=== PATIENT | female | born 1970 | race Caucasian/White ===

== ENCOUNTER → 2016-10-14 | Outpatient (CLI) | payer OTHER ==
--- NOTE | 2016-10-15 08:01 | XR ---
EXAMINATION TYPE: XR shoulder complete LT DATE OF EXAM: 10/14/2016 10:41 AM COMPARISON: NONE HISTORY: 46-year-old female with fall and acute superior left shoulder pain TECHNIQUE: 3 views FINDINGS: There is mild degenerative change at the acromioclavicular joint with prominent marginal spurring and subchondral sclerosis. The glenohumeral joint remains intact without evidence for acute fracture or dislocation. There is a 3 mm calcific focus posterior aspect of the humeral head. Additionally, there is a 1.2 cm calcified/ossific density along the anterolateral proximal third humeral shaft in line w ith the bicipital groove. Visualized left hemithorax is clear. IMPRESSION: 1. No acute osseous abnormality seen. 2. Mild AC joint OA. 3. Tiny 3 mm density posterior aspect of the humeral head could represent calcification relating to c alcific tendinitis. Clinically correlate. 4. Additional 1.2 cm density along the upper humeral shaft in line with the bicipital groove suspecte d to represent a loose body.
== END | disposition home or self-care (01) ==
LOC: RADXRYALE 10:20
PROVIDERS: ATTEND Family Medicine
DX: M19.012 Primary osteoarthritis, left shoulder (principal); W19.XXXA Unspecified fall, initial encounter

== ENCOUNTER 2017-05-19 10:08 | Inpatient (IN) | payer OTHER ==
--- NOTE | 2017-05-19 14:04 | EST ---
EXERCISE STRESS DATE OF SERVICE: 05/19/2017 AGE: 46 SEX: F HT: 66" WT: 192 PROTOCOL: PRICILA STRESS TEST STAGE: 4 DURATION OF EXERCISE: 9:30 HEART RATE REST: 69 BLOOD PRESSURE REST: 135/89 MAXIMUM HEART RATE ACHIEVED: 150 MAXIMUM BLOOD PRESSURE: 149/67 85% MPHR: 138 100% MPHR: 162 METS: 11.1 INDICATIONS: Hypertension, chest pain, shortness of breath, abnormal EKG. STRESS DATA: Pretesting physical examination showed a heart rate of 69, pressure is 135/89 mmHg. Baseline EKG showed sinus mechanism. The patient exercised on the treadmill according to Pricila protocol for a total of 9 minutes and 30 seconds and achieved 11.1 METS. Max heart rate was 150 beats per minute, which is about 92% of maximum predicted heart rate. Clinically, the patient developed chest discomfort during the exercise. The EKG showed about [address]-segment changes, result on the recovery. CONCLUSION: 1. Good exercise capacity. 2. Abnormal EKG in response to exercise with evidence of ischemic changes. 3. Chest discomfort and response to exercise as well. 4. Overall, very abnormal treadmill exercise stress test for this patient. MMODL / IJN: [id number] /
[2017-05-19] MEDS ORDERED: HEPARIN SODIUM,PORCINE 5,000 UNIT/ML 1 ML VIAL IV PRN (14:21)
[2017-05-19] MEDS ORDERED: NITROGLYCERIN SL TABS 0.4 MG TAB SUBLINGUAL PRN (14:21)
[2017-05-19] MEDS ORDERED: SODIUM CHLORIDE 0.9% 1,000 ML in EMPTY BAG 1 BAG IV ONE (14:21)
[2017-05-19] MEDS ORDERED: ALPRAZolam 0.5 MG TAB PO PRN (14:21)
[2017-05-19] MEDS ORDERED: ALPRAZolam 0.25 MG TAB PO PRN (14:21)
[2017-05-19] MEDS ORDERED: HEPARIN SODIUM,PORCINE 5,000 UNIT/ML 1 ML VIAL IV ONE (14:21)
[2017-05-19] MEDS ORDERED: ASPIRIN 81 MG PO STA (14:26)
[2017-05-19] MEDS ORDERED: HEPARIN SODIUM,PORCINE/D5W PMX 25,000 UNIT in DEXTROSE/WATER 1 500ML.BAG IV SCH (14:30)
--- NOTE | 2017-05-19 14:55 | P.CRDCN ---
History of Present Illness Consult date: 05/19/17 History of present illness: This is a 46-year-old female with past medical history significant for hypertension. She currently takes losartan/hctz daily per her PCP. She presented for an outpatient stress test today. She developed acute ST changes and had chest pain/tightness that resolved with rest. She has been placed on observation unit to prep for cardiac catheterization tomorrow morning with Dr. Redman. Review of Systems CONSTITUTIONAL: Denies fever. Denies chills. EYES: Denies blurred vision. Denies vision changes. Denies eye pain. EARS, NOSE, MOUTH & THROAT: Denies headache. Denies sore throat. Denies ear pain. CARDIOVASCULAR: Denies chest pain. Denies shortness of breath. Denies orthopnea. Denies PND. Denies palpitations. RESPIRATORY: Denies cough. GASTROINTESTINAL: Denies abdominal pain. Denies diarrhea. Denies constipation. Denies nausea. Denies vomitng. MUSCULOSKELETAL: Denies myalgias. INTEGUMENTARY: Denies pruitis. Denies rash. NEUROLOGIC: Denies numbness. Denies tingling. Denies weakness. PSYCHIATRIC: Denies anxiety. Denies depression. ENDOCRINE: Denies fatigue. Denies weight change. Denies polydipsia. Denies polyurina. GENITOURINARY: Denies burning, hematuria or urgency with micturation. HEMATOLOGIC: Denies history of anemia. Denies bleeding. Past Medical History - Past Family History Mother Additional Family Medical History / Comment(s): Mother Medications and Allergies Home Medications Medication Instructions Recorded Confirmed Type Losartan/Hydrochlorothiazide 1 each PO QAM 05/07/16 05/12/16 History [Losartan-Hctz 100-25 mg Tab] Naproxen Sodium [Aleve] 220 mg PO HS PRN 05/07/16 05/07/16 History Allergies Allergy/AdvReac Type Severity Reaction Status Date / Time latex Allergy Itching Verified 05/12/16 07:53 Physical Exam Vitals: Vital Signs Temp Pulse Resp BP Pulse Ox 05/19/17 14:27 97.8 F 82 18 141/83 90 L Intake and Output 05/18/17 05/19/17 05/19/17 22:59 06:59 14:59 Other: Weight 88.7 kg Patient Weight 10/19/17 06:59 Weight 88.7 kg GENERAL: This is a 46-year-old female in no apparent distress at the time of my examination. HEENT: Head is atraumatic, normocephalic. Pupils are equal, round. Sclerae anicteric. Conjunctivae are clear. Mucous membranes of the mouth are moist. Neck is supple. There is no jugular venous distention. No carotid bruit is heard. LUNGS: Clear to auscultation no wheezes, rales or rhonchi. No chest wall tenderness is noted on palpation or with deep breathing. HEART: Regular rate and rhythm without murmurs, rubs or gallops. S1 and S2 heard. ABDOMEN: Soft, nontender. Bowel sounds are heard. No organomegaly noted. EXTREMITIES: 2+ peripheral pulses with no evidence of peripheral edema and no calf tenderness noted. NEUROLOGIC: Patient is awake, alert and oriented x3. Results Current Medications Generic Name Dose Route Start Last Admin Trade Name Freq PRN Reason Stop Dose Admin Alprazolam 0.25 mg 05/19/17 14:21 Xanax PO Q6HR PRN Mild Anxiety Alprazolam 0.5 mg 05/19/17 14:21 Xanax PO Q6HR PRN Moderate Anxiety Aspirin 325 mg 05/20/17 06:00 Aspirin PO 05/20/17 06:01 ONCE ONE Heparin Sodium (Porcine) 0 unit 05/19/17 14:21 Heparin IV PER PROTOCOL PRN Low PTT Protocol Heparin Sodium/Dextrose 25,000 500 mls @ 20.03 mls/hr 05/19/17 14:30 unit/ IV Solution IV .Q24H AYO Protocol 11.5 UNITS/KG/HR Nitroglycerin 0.4 mg 05/19/17 14:21 Nitrostat SUBLINGUAL Q5M PRN Chest Pain Intake and Output 05/18/17 05/19/17 05/19/17 22:59 06:59 14:59 Other: Weight 88.7 kg Patient Weight 05/20/17 06:59 Weight 88.7 kg Assessment and Plan Assessment: ASSESSMENT 1. Unstable angina with EKG changes 2. ST depression with exercise 3. Essential hypertension 4. Obesity PLAN The abnormal stress test has been discussed with the patient's primary care provider. It has been recommended that the patient undergo cardiac catheterization to assess for any coronary artery disease or obstruction. I have discussed the risks, benefits and alternative therapies for the above- mentioned procedure and for both sedation/analgesia as well as necessary blood product administration, if indicated, as they pertain to this patient. The patient has indicated understanding and acceptance of the risks and procedures discussed. Questions have been answered appropriately. Orders have been placed for cardiac catheterization tomorrow morning. The patient is to be nothing by mouth after midnight tonight. Orders have been placed for EKG now for baseline as well as baseline labs. Further recommendations based upon clinical course. Nurse Practitioner note has been reviewed, I agree with a documented findings and plan of care. Patient was seen and examined.
[2017-05-19 15:51] LABS: Basophils # (A) 0.1 k/uL (0-0.2); Basophils % (A) 1 %; CH 31.8; CHCM 35.4; Eosinophils # (A) 0.2 k/uL (0-0.7); Eosinophils % (A) 3 %; HCT 42.9 % (34.0-46.0); HDW 2.87; HGB 14.4 gm/dL (11.4-16.0); Luc # (Auto) 0.15; Luc % (Auto) 2; Lymphocytes # (A) 1.9 k/uL (1.0-4.8); Lymphocytes % (A) 28 %; MCH 30.4 pg (25.0-35.0); MCHC 33.6 g/dL (31.0-37.0); MCV 90.4 fL (80.0-100.0); Mean Platelet Volume 6.7; Monocytes # (A) 0.6 k/uL (0-1.0); Monocytes % (A) 8 %; Neutrophils % (A) 58 %; RBC 4.74 m/uL (3.80-5.40); WBC 6.9 k/uL (3.8-10.6); WBC (Perox) 6.65
[2017-05-19 16:08] LABS: Partial Thromboplastin Time 21.7 sec (22.0-30.0); Prothrombin Time 10.1 sec (9.0-12.0)
[2017-05-19 16:22] LABS: Anion Gap 9 mmol/L; Blood Urea Nitrogen 15 mg/dL (7-17); Calcium 10.4 mg/dL (8.4-10.2); Carbon Dioxide 24 mmol/L (22-30); Chloride 106 mmol/L (98-107); Glucose 90 mg/dL (74-99); Non-African American GFR(MDRD) >60 (>60 ml/min/1.73 sqM); Potassium 4.2 mmol/L (3.5-5.1); Sodium 139 mmol/L (137-145)
[2017-05-19] MEDS: METOPROLOL SUCCINATE (ER) 50 MG TAB.ER.24H PO SCH (16:49)
[2017-05-19] MEDS: LOSARTAN 50 MG TAB PO SCH (16:49)
[2017-05-19] MEDS: HYDROCHLOROTHIAZIDE 25 MG TAB PO SCH (16:49)
[2017-05-20] MEDS: LOSARTAN 50 MG TAB PO SCH (05:52)
[2017-05-20] MEDS: METOPROLOL SUCCINATE (ER) 50 MG TAB.ER.24H PO SCH (05:52)
[2017-05-20] MEDS ORDERED: ASPIRIN 325 MG TAB PO ONE (06:00)
[2017-05-20 06:39] LABS: Basophils # (A) 0.1 k/uL (0-0.2); Basophils % (A) 2 %; CH 31.5; CHCM 35.7; Eosinophils # (A) 0.2 k/uL (0-0.7); Eosinophils % (A) 3 %; HDW 2.95; HGB 14.3 gm/dL (11.4-16.0); Luc # (Auto) 0.12; Luc % (Auto) 2; Lymphocytes # (A) 2.1 k/uL (1.0-4.8); Lymphocytes % (A) 38 %; MCV 88.6 fL (80.0-100.0); Mean Platelet Volume 6.6; Monocytes # (A) 0.4 k/uL (0-1.0); Monocytes % (A) 8 %; Neutrophils # (A) 2.6 k/uL (1.3-7.7); Neutrophils % (A) 47 %; RBC 4.62 m/uL (3.80-5.40); WBC 5.4 k/uL (3.8-10.6); WBC (Perox) 5.19
[2017-05-20 07:33] LABS: Cholesterol 254 mg/dL (<200); HDL Cholesterol 35 mg/dL (40-60)
[2017-05-20 07:46] VITALS: RESP 18
[2017-05-20] MEDS ORDERED: IV FLUID CONTINUATION 300 ML IV ONE (07:51)
[2017-05-20] MEDS ORDERED: MIDAZOLAM 2 MG/2 ML VIAL IVP ONE (08:05)
[2017-05-20] MEDS ORDERED: LIDOCAINE 2% INJ 20 MG/ML SQ ONE (08:08)
[2017-05-20] MEDS: VERAPAMIL SYRINGE (5 MG/10 ML) INTRAARTER ONE ×2 (08:09→08:59)
[2017-05-20] MEDS ORDERED: HEPARIN SODIUM 1,000 UN/ML (10ML VL) IV ONE ×2 (08:10→08:36)
[2017-05-20] MEDS ORDERED: MIDAZOLAM 2 MG/2 ML VIAL IV ONE (08:34)
[2017-05-20] MEDS ORDERED: fentaNYL (PF) 50 MCG/ML 2 ML AMP IV ONE (08:41)
[2017-05-20] MEDS ORDERED: ADENOSINE 90 MG in SODIUM CHLORIDE 0.9% 60 ML IVP ONE (08:54)
[2017-05-20] MEDS ORDERED: IOHEXOL 350 MG/ML 125ML BOTTLE INJ ONE (08:59)
[2017-05-20] MEDS ORDERED: RX INFO: IV CONTRAST WAS GIVEN 1 EACH MISC MISCELLANE PRN (09:03)
[2017-05-20] MEDS ORDERED: SODIUM CHLORIDE 0.9% 1,000 ML IV SCH (09:15)
--- NOTE | 2017-05-20 09:44 | CC ---
CARDIAC CATHETERIZATION REPORT DATE OF SERVICE: 05/20/2017 PERFORMING PHYSICIAN: Blake Redman MD, priming mixture carrier. PROCEDURE PERFORMED: 1. Selective right and left coronary angiogram. 2. Left heart catheterization. 3. Fractional flow reserve, FFR, of the left circumflex coronary artery. INDICATION: This is a pleasant 46-year-old female patient who is a patient of Dr. Bhupendra Dunbar who underwent an outpatient exercise treadmill stress test, which was abnormal with ischemic ST changes and chest discomfort in response to exercise. She was kept overnight for a heart catheterization today. APPROACH: Right radial artery. COMPLICATION: None. LEVEL OF SEDATION: Moderate with sedation length of 67 minutes. PROCEDURE DESCRIPTION: After obtaining an informed consent, the patient was brought to the cardiac rn labor delivery. The right radial artery was cannulated using micropuncture technique, the micropuncture wire passed easily then I placed a 6-Icelandic sheath in the right radial artery. Subsequently I did give the patient 2 mg of verapamil IA and a total of 10,000 units of heparin IV. After that, I did selective right and left coronary angiogram using JR4 and JL3.5 catheters. Left heart catheterization was performed using 5-Icelandic pigtail catheter. Subsequently, we decided to do an FFR of the left circumflex. Please see a separate paragraph for that. SELECTIVE CORONARY ANGIOGRAM: 1. The right coronary artery is a large caliber vessel and it is a dominant vessel. The RCA in the midportion has disease appeared to be in the range of 30% to 40%. Distally has disease appeared to be in the range of 20% only. It bifurcates into PDA and PLV branches. Both are angiographically normal. 2. The left main is angiographically normal. It bifurcates into the left circumflex and left anterior descending artery. 3. The left circumflex is a large caliber vessel and it is a nondominant vessel. The proximal left circumflex appeared to be angiographically normal and gives rise into a large OM branch which has an intermediate lesion appeared to be in the range of 60% to 70%. The FFR was performed and came to be at 0.85, which is nonischemic. The left circumflex continues after that as a medium caliber vessel which and seems to be angiographically normal. 4. The left anterior descending artery; the proximal LAD appeared to have mild disease only. The mid LAD appeared to have mild disease as well and gives rise into 2 diagonal branches. They appeared to have mild disease only. The LAD distally appeared to be angiographically normal. HEMODYNAMICS: The left ventricular end-diastolic pressure was 20 mmHg and no gradient was identified across the aortic valve. FFR OF THE LEFT CIRCUMFLEX: Anticoagulation was used. Anticoagulation was initiated using heparin with 10,000 units in the beginning of the procedure. After that, and after zeroing the Doppler wire and equalizing between the Doppler wire and the guiding catheter, which was JL3.5 guiding catheter, we did FFR per IV adenosine infusion and the FFR came in to be 0.85 which is nonischemic. CONCLUSION: 1. Mild disease involving the right coronary artery, which is a dominant vessel. 2. Normal left main coronary artery. 3. Intermediate disease involving the left circumflex artery with an FFR came in to be 0.85. 4. Mild disease involving the left anterior descending artery. POSTPROCEDURE MANAGEMENT: 1. Maximize medical treatment. 2. Follow up with the patient. MMODL / IJN: [id number] /
--- NOTE | 2017-05-20 09:46 | LTR ---
May 20, 2017 Re: Marilu Dao Dear Bhupendra: Per our discussion yesterday, Marilu Dao underwent a heart catheterization and that showed intermediate to severe disease involving the left circumflex coronary artery with a lesion about 60% to 70%. I did fractional flow reserve on the lesion and it turned out to be nonischemic. Maximize medical treatment is recommended at this point of time and I will continue following up with her. I want to thank you for allowing me to participate in her care and please do not hesitate to call if you have any question or concern. Sincerely, Blake Redman MD MMPAIGE / DARRIN: [id number] /
[2017-05-20] MEDS: HYDROCHLOROTHIAZIDE 25 MG TAB PO SCH (10:30)
[2017-05-20 10:41] VITALS: TEMP 98.1
[2017-05-20 11:52] VITALS: BP 110/66; PULSE 65
[2017-05-20] MEDS ORDERED: KETOROLAC 30 MG/ML 1 ML VIAL IVP STA (13:51)
--- NOTE | 2017-05-20 13:52 | MM ---
Reason for exam: screening (asymptomatic). Last mammogram was performed 1 year and 2 months ago. Physical Findings: A clinical breast exam by your physician is recommended on an annual basis and results should be correlated with mammographic findings. MG 3D Screening Mammo W/Cad Bilateral CC and MLO view(s) were taken. Prior study comparison: March 11, 2016, bilateral MG 3d screening mammo w/cad. April 18, 2014, bilateral MG screening mammo w CAD. The breast tissue is extremely dense which could obscure a lesion on mammography. No significant changes when compared with prior studies. ASSESSMENT: Negative, BI-RAD 1 RECOMMENDATION: Routine screening mammogram of both breasts in 1 year.
--- NOTE | 2017-05-20 16:14 | P.HPIM ---
History of Present Illness H&P Date: 05/20/17 Chief Complaint: chest pain patient is a 46-year-old female with a past medical history of hypertension and migraine headaches was originally presented to hospital for outpatient stress test. Patient developed chest pain and ST elevation changes while doing stress test and was sent to Hospital for cardiac catheterization. Chest pain and EKG changes were resolved with the rest. Patient currently denied any chest pain or short of breath. Denied any history of coronary artery disease. Patient started having exercise program for the past few months since then she's been having on and off chest pains. Denied a history of GERD. Denied any recent illnesses or sick contacts. Patient was also found to have elevated triglyceride levels Review of Systems Constitutional: Patient denies any fever or chills . No generalized weakness or weight loss. Abdomen: Patient denied nausea vomiting and diarrhea and abdominal pain. Cardiovascular: Patient denies any chest pain or short of breath no palpitations. Respiratory: patient denied any cough is from production. No shortness of breath Neurologic: Patient denied any numbness or tingling headache. Musculoskeletal: Patient denies any complaints of joint swelling or deformity. Skin: Negative Psychiatric: Negative Endocrine: No heat or cold intolerance. No recent weight gain. Genitourinary: No dysuria or hematuria. All other 14 point ROS negative except the above Past Medical History Past Medical History: Hypertension Additional Past Medical History / Comment(s): MIGRAINES, UTERINE FIBROIDS/CYST HAD HYTERECTOMY History of Any Multi-Drug Resistant Organisms: None Reported Past Surgical History: Bladder Surgery, Hysterectomy, Tonsillectomy Additional Past Surgical History / Comment(s): ADI CARPAL TUNNEL RELEASE, RT SHOULDER ARTHROSCOPY, RT KNEE ARTHROSCOPY Past Anesthesia/Blood Transfusion Reactions: Motion Sickness Past Psychological History: No Psychological Hx Reported Smoking Status: Former smoker Past Alcohol Use History: Occasional Additional Past Alcohol Use History / Comment(s): STARTED SMOKING 2002 AND QUIT 2012 SMOKED 1 PPD Past Drug Use History: None Reported - Past Family History Mother Family Medical History: Deep Vein Thrombosis (DVT) Additional Family Medical History / Comment(s): Mother Father Additional Family Medical History / Comment(s): PT'S DAD WHEN SHE WAAS A YOUNG CHILD. HE WS KILLED WHEN AT WORK ON AN OIL RIG Medications and Allergies Home Medications Medication Instructions Recorded Confirmed Type Losartan/Hydrochlorothiazide 1 tab PO DAILY 05/07/16 05/19/17 History [Losartan-Hctz 100-25 mg Tab] Calcium Carbonate [Calcium] 600 mg PO DAILY 05/19/17 05/19/17 History Cholecalciferol [Vitamin D3] 1,000 unit PO DAILY 05/19/17 05/19/17 History Magnesium 200 mg PO DAILY 05/19/17 05/19/17 History Metoprolol Succinate (ER) [Toprol 50 mg PO DAILY 05/19/17 05/19/17 History XL] Atorvastatin [Lipitor] 40 mg PO HS #30 tab 05/20/17 Rx Allergies Allergy/AdvReac Type Severity Reaction Status Date / Time latex Allergy Itching Verified 05/19/17 14:52 Physical Exam Vitals: Vital Signs Temp Pulse Pulse Resp BP BP Pulse Ox 05/20/17 11:00 65 110/66 97 05/20/17 10:39 98.1 F 68 18 116/46 97 05/20/17 10:30 64 111/67 97 05/20/17 10:00 63 106/60 93 L 05/20/17 09:45 65 65 106/60 116/67 95 05/20/17 09:30 67 133/65 96 05/20/17 09:15 60 18 121/70 94 L 05/20/17 07:44 98 F 69 18 125/70 95 05/20/17 04:00 16 05/20/17 03:57 97.8 F 69 16 111/64 97 05/19/17 23:57 16 05/19/17 23:56 98.0 F 63 16 109/62 96 05/19/17 20:00 16 05/19/17 19:24 97.9 F 70 16 152/80 96 05/19/17 14:27 97.8 F 82 18 141/83 90 L 05/19/17 14:22 97.8 F 69 18 111/64 97 Intake and Output 05/19/17 05/20/17 05/20/17 22:59 06:59 14:59 Intake Total 360 232 Balance 360 232 Intake: IV 232 Oral 360 Other: Voiding Method Toilet PHYSICAL EXAMINATION: Patient is lying in the bed comfortably, no acute distress, awake alert and oriented.. HEENT: Normocephalic. Neck is supple. Pupils reactive. Nostrils clear. Oral cavity is moist. Ears reveal no drainage. Neck reveals no JVD, carotid bruits, or thyromegaly. CHEST EXAMINATION: Trachea is central. Symmetrical expansion. Lung christie clear to auscultation and percussion. CARDIAC: Normal S1, S2 with no gallops. No murmurs ABDOMEN: Soft. Bowel sounds normal. No organomegaly. No abdominal bruits. Extremities: reveal no edema. No clubbing or cyanosis Neurologically awake, alert, oriented x3 with well-coordinated movements. No focal deficits noted Skin: No rash or skin lesions. Psychiatric: Operative. Nonsuicidal Musculoskeletal: No joint swelling or deformity. Normal range of motion. Results CBC & Chem 7: 05/20/17 06:15 05/19/17 15:27 Labs: Abnormal Lab Results - Last 24 Hours (Table) 05/19/17 05/19/17 05/20/17 Range/Units 15:27 15:27 06:15 APTT 21.7 L (22.0-30.0) sec Calcium 10.4 H (8.4-10.2) mg/dL Triglycerides 855 H (<150) mg/dL Cholesterol 254 H (<200) mg/dL HDL Cholesterol 35 L (40-60) mg/dL Thrombosis Risk Factor Assmnt - Choose All That Apply Any of the Below Risk Factors Present?: Yes Each Factor Represents 1 point: Age 41-60 years, Obesity (BMI >25) Other Risk Factors: Yes Each Risk Factor Represents 3 Points: Family history of DVT/PE Other congenital or acquired thrombophilia - If yes, enter type in comment: No Thrombosis Risk Factor Assessment Total Risk Factor Score: 5 Thrombosis Risk Factor Assessment Level: High Risk Assessment and Plan Assessment: #[address] depression during stress test. #2 hypertension #3 hyperlipidemia and hypertriglyceridemia #4 obesity with BMI 31.6 #5history of NSAID use plan: Patient will be continued on telemetry monitoring. Due to abnormal stress test cardiology recommended cardiac catheterization. Serial troponins negative. EKG changes resolved at rest. Currently patient denied any chest pain. Further recommendations based on the clinical course.
[2017-05-20] MEDS ORDERED: ATORVASTATIN 40 MG TAB PO SCH (21:00)
== END 2017-05-20 15:50 | disposition home or self-care (01) | DRG 287 ==
LOC: RADMAMWWP 10:08 → 3OBS 14:05 → OBSVTOIN 05-20 09:12
PROVIDERS: ADMIT Hospitalist; ATTEND Hospitalist
PROC: 4A033BC Measurement of Arterial Pressure, Coronary, Percutaneous Approach (ICD-10-PCS; 2017-05-20)
PROC: 4A023N7 Measurement of Cardiac Sampling and Pressure, Left Heart, Percutaneous Approach (ICD-10-PCS; principal; 2017-05-20 07:30)
PROC: B2111ZZ Fluoroscopy of Multiple Coronary Arteries using Low Osmolar Contrast (ICD-10-PCS; 2017-05-20 07:30)
DX: I20.0 Unstable angina (principal); I10 Essential (primary) hypertension; E78.1 Pure hyperglyceridemia; E66.9 Obesity, unspecified; Z87.891 Personal history of nicotine dependence; Z79.899 Other long term (current) drug therapy; Z87.42 Personal history of other diseases of the female genital tract; Z90.710 Acquired absence of both cervix and uterus; Z90.49 Acquired absence of other specified parts of digestive tract; Z86.718 Personal history of other venous thrombosis and embolism; Z91.040 Latex allergy status; Z79.1 Long term (current) use of non-steroidal anti-inflammatories (NSAID)
CPT/HCPCS: 77063; 80048; 80061; 81025; 85025; 85347; 85610; 85730; 93017; 93458; 93571

== ENCOUNTER 2017-12-28 06:33 | Day surgery (SDC) | payer OTHER ==
[2017-12-20 11:58] VITALS: BMI 31.8
[~2017-12-28 06:33] MED LIST: ALPRAZolam 0.25 MG TAB PO PRN; ALPRAZolam 0.5 MG TAB PO PRN; ASPIRIN 325 MG TAB PO STA; ATORVASTATIN 80 MG TAB PO STA; NITROGLYCERIN SL TABS 0.4 MG TAB SUBLINGUAL PRN; SODIUM CHLORIDE 0.9% 1,000 ML in EMPTY BAG 1 BAG IV ONE
[2017-12-28] MEDS ORDERED: LIDOCAINE 2% INJ 20 MG/ML (20 ML MDV) ONE (07:35)
[2017-12-28] MEDS ORDERED: VERAPAMIL 2.5 MG/ML 2 ML AMP ONE (07:35)
[2017-12-28] MEDS ORDERED: MIDAZOLAM 2 MG/2 ML VIAL ONE (07:35)
[2017-12-28] MEDS ORDERED: MIDAZOLAM 2 MG/2 ML VIAL IV ONE (07:46)
[2017-12-28] MEDS ORDERED: LIDOCAINE 2% INJ 20 MG/ML SQ ONE (07:50)
[2017-12-28] MEDS: VERAPAMIL 2.5 MG/ML 2 ML AMP INTRAARTER ONE ×2 (07:52→08:18)
[2017-12-28] MEDS ORDERED: BIVALIRUDIN 250 MG in SODIUM CHLORIDE 0.9% 50 ML IV ONE (07:52)
[2017-12-28] MEDS ORDERED: BIVALIRUDIN BOLUS 250 MG/50 ML IV ONE (07:52)
[2017-12-28] MEDS ORDERED: CLOPIDOGREL 75 MG TAB ONE (07:57)
[2017-12-28] MEDS ORDERED: CLOPIDOGREL 75 MG TAB PO ONE (08:04)
[2017-12-28] MEDS ORDERED: fentaNYL (PF) 50 MCG/ML 2 ML AMP ONE (08:08)
[2017-12-28] MEDS ORDERED: fentaNYL (PF) 50 MCG/ML 2 ML AMP IVP ONE (08:10)
[2017-12-28] MEDS ORDERED: NITROGLYCERIN 1000MCG/10ML SYRINGE INTRACORON ONE (08:14)
[2017-12-28] MEDS ORDERED: IOPAMIDOL-370 125ML BTL INJ ONE (08:19)
[2017-12-28] MEDS ORDERED: RX INFO: IV CONTRAST WAS GIVEN 1 EACH MISC MISCELLANE PRN (08:25)
[2017-12-28] MEDS ORDERED: MAG HYDROX/AL HYDROX/SIMETH 30 ML CUP PO PRN (08:25)
[2017-12-28] MEDS ORDERED: NITROGLYCERIN SL TABS 0.4 MG TAB SUBLINGUAL PRN (08:25)
[2017-12-28] MEDS ORDERED: ZOLPIDEM 5 MG TAB PO PRN (08:25)
[2017-12-28] MEDS ORDERED: ATROPINE SULFATE 0.1 MG/ML 10ML SYRINGE IV PRN (08:25)
[2017-12-28] MEDS ORDERED: SODIUM CHLORIDE 0.9% 1,000 ML IV SCH (08:30)
[2017-12-28] MEDS ORDERED: NON-FORMULARY DRUG (Aspirin [Adult Low Dose Aspirin Ec] 81 MG) PO SCH (09:00)
[2017-12-28] MEDS ORDERED: MAGNESIUM PO SCH (09:00)
[2017-12-28] MEDS ORDERED: [UNRECOGNIZED DRUG - OTHER] PO SCH (09:00)
[2017-12-28] MEDS ORDERED: POTASSIUM PO SCH (09:00)
[2017-12-28] MEDS ORDERED: KELP PO SCH (09:00)
[2017-12-28] MEDS ORDERED: SUPER OMEGA PO SCH (09:00)
--- NOTE | 2017-12-28 09:19 | LTR ---
December 28, 2017 Re: Marilu Dao Dear Dr. Dunbar: Marilu Dao underwent successful angioplasty and stenting of the left circumflex coronary artery with good angiographic results and without any complication. Thank you for allowing me to participate in her care and please do not hesitate to call if you have any question or concern. Sincerely, Blake Redman MD MMIDAL / ROLAN: [id number] /
--- NOTE | 2017-12-28 10:13 | PTCA ---
PERCUTANEOUSTRANS CORORONARY ANGIOGRAPHY DATE OF SERVICE: 12/28/2017 PERFORMING PHYSICIAN: Blake Redman MD, trousseau consultant. PROCEDURE PERFORMED: Successful stenting of the distal left circumflex coronary artery using 3.0 x 12 mm Xience TANISHA with good angiographic results. INDICATION: This is a pleasant 47-year-old female patient who is known to have intermediate to severe disease involving the left circumflex with a borderline FFR was getting treated medically for about 6 months continues to have chest discomfort in spite of maximized medical treatment. She was brought today to undergo an intervention on the left circumflex. APPROACH: Right radial artery. COMPLICATION: None. LEVEL OF SEDATION: Moderate with sedation length of 30 minutes. PROCEDURE DESCRIPTION: After obtaining an informed consent, the patient was brought to the cardiac logging rafter laborer. The right radial artery was cannulated using micropuncture technique and the micropuncture wire passed easily then I placed a 6-Beninese sheath in the right radial artery. Subsequently I gave the patient 2 mg of verapamil IA and I started anticoagulation using Angiomax. Subsequently I did engage the left main using a JL3.5 guide. A whisper wire was used to wire the left circumflex. I did try to advance a balloon but the balloon will not make the turn from the left main to left circumflex. So at that point, I did wire the left circumflex using a calvin wire with a run-through wire. After that, I was able to advance 3.0 x 12 mm balloon into the distal left circumflex where the balloon was inflated under 10 atmospheres for 20 seconds and after that I advanced 3.0 x 12 mm Xience TANISHA where the stent again was positioned under fluoroscopy guidance and deployed under its nominal pressure. The following angiogram showed good angiographic results and the procedure was completed without any complication. POSTPROCEDURE MANAGEMENT: 1. Dual anti-platelet therapy. 2. Risk factor modifications. 3. Follow up with the patient. MMODL / IJN: [id number] /
[2017-12-28] MEDS: LOSARTAN-HCTZ 50-12.5 MG 1 EACH TAB PO SCH ×2 (10:42→10:47)
[2017-12-28] MEDS: ASPIRIN 325 MG TAB PO SCH ×2 (10:43→10:47)
[2017-12-28] MEDS: METOPROLOL TARTRATE 25 MG TAB PO SCH ×2 (10:43→16:28)
[2017-12-28] MEDS: ISOSORBIDE MONONITRATE ER 60 MG TAB.ER.24H PO SCH ×2 (10:43→10:47)
[2017-12-28] MEDS: CYANOCOBALAMIN-FA-PYRIDOXINE 1 EACH TAB PO SCH ×2 (10:43→10:50)
[2017-12-28 11:38] LABS: Glucose,Whole Blood 133 mg/dL (75-99)
[2017-12-28] MEDS ORDERED: ATORVASTATIN 40 MG TAB PO STA (20:42)
[2017-12-28] MEDS ORDERED: NON-FORMULARY DRUG (Ubidecarenone [Co Q-10] 100 MG) PO SCH (21:00)
[2017-12-29 04:14] LABS: Basophils # (A) 0.1 k/uL (0-0.2); Basophils % (A) 2 %; Eosinophils # (A) 0.3 k/uL (0-0.7); Eosinophils % (A) 5 %; HCT 40.6 % (34.0-46.0); HGB 14.3 gm/dL (11.4-16.0); Lymphocytes # (A) 2.3 k/uL (1.0-4.8); Lymphocytes % (A) 40 %; MCH 30.3 pg (25.0-35.0); MCHC 35.2 g/dL (31.0-37.0); MCV 85.9 fL (80.0-100.0); Mean Platelet Volume 6.9; Monocytes # (A) 0.5 k/uL (0-1.0); Monocytes % (A) 9 %; Neutrophils # (A) 2.5 k/uL (1.3-7.7); Neutrophils % (A) 43 %; Platelet Count 220 k/uL (150-450); RBC 4.73 m/uL (3.80-5.40); RDW 12.8 % (11.5-15.5); WBC 5.8 k/uL (3.8-10.6)
[2017-12-29 04:32] LABS: Anion Gap 11 mmol/L; Blood Urea Nitrogen 10 mg/dL (7-17); Calcium 9.9 mg/dL (8.4-10.2); Carbon Dioxide 24 mmol/L (22-30); Chloride 107 mmol/L (98-107); Glucose 132 mg/dL (74-99); Potassium 3.9 mmol/L (3.5-5.1); Sodium 142 mmol/L (137-145)
[2017-12-29] MEDS: ASPIRIN 325 MG TAB PO SCH (07:54)
[2017-12-29] MEDS: LOSARTAN-HCTZ 50-12.5 MG 1 EACH TAB PO SCH (07:55)
[2017-12-29] MEDS: CYANOCOBALAMIN-FA-PYRIDOXINE 1 EACH TAB PO SCH (07:55)
[2017-12-29] MEDS: ISOSORBIDE MONONITRATE ER 60 MG TAB.ER.24H PO SCH (07:55)
[2017-12-29 08:00] VITALS: BP 153/86; PULSE 80; RESP 22; TEMP 98
--- NOTE | 2017-12-29 08:45 | P.DS ---
Providers Date of admission: 12/28/2017 Attending physician: Blake Redman Consults: 12/28/17 08:25 Consult Physician Routine Consulting Provider: [facility] Consult Reason/Comments: Post Interventional patient Do you want consulting provider notified?: Already Contacted [facility] Course: This is a pleasant 47-year-old female patient with known history of intermediate to severe coronary artery disease involving the left circumflex with a borderline fractional flow reserve about a year ago was experiencing intermittent episodes of chest discomfort concerning for angina. Maximize medical treatment was tried and the patient continues to have chest discomfort in spite of that. She was admitted yesterday and underwent successful stenting of the left circumflex with a good angiographic results and without any complication using drug-eluting stent. On follow-up with the patient today, she denies having any chest pain or discomfort. The patient is going to be discharged home on dual antiplatelet therapy along with a statin. She is intolerant to beta vero. The procedure was performed from the right radial artery. I am going to follow-up with the patient in a week in the office. Plan - Discharge Summary Discharge Rx Participant: Yes New Discharge Prescriptions: New Clopidogrel [Plavix] 75 mg PO DAILY #90 tab Continue Losartan/Hydrochlorothiazide [Losartan-Hctz 100-25 mg Tab] 1 tab PO DAILY Atorvastatin [Lipitor] 40 mg PO HS #30 tab Vitamin B Complex 1 each PO DAILY Ubidecarenone [Co Q-10] 100 mg PO HS Aspirin [Adult Low Dose Aspirin EC] 81 mg PO DAILY Potassium + Magnesium(Dose Unknown) 1 tab PO DAILY Apple Cider Complete(Dose Unknown) 2 tab PO DAILY Isosorbide Mononitrate ER [Imdur] 60 mg PO DAILY Kelp 1 each PO DAILY Super Redford 3-7-9 2 tab PO DAILY Discharge Medication List Losartan/Hydrochlorothiazide [Losartan-Hctz 100-25 mg Tab] 1 tab PO DAILY [History] Atorvastatin [Lipitor] 40 mg PO HS #30 tab 05/20/17 [Rx] Apple Cider Complete(Dose Unknown) 2 tab PO DAILY 12/20/17 [History] Aspirin [Adult Low Dose Aspirin EC] 81 mg PO DAILY 12/20/17 [History] Isosorbide Mononitrate ER [Imdur] 60 mg PO DAILY 12/20/17 [History] Kelp 1 each PO DAILY 12/20/17 [History] Potassium + Magnesium(Dose Unknown) 1 tab PO DAILY 12/20/17 [History] Super Redford 3-7-9 2 tab PO DAILY 12/20/17 [History] Ubidecarenone [Co Q-10] 100 mg PO HS 12/20/17 [History] Vitamin B Complex 1 each PO DAILY 12/20/17 [History] Clopidogrel [Plavix] 75 mg PO DAILY #90 tab 12/29/17 [Rx] Follow up Appointment(s)/Referral(s): Blake Redman MD [STAFF PHYSICIAN] - 1 Week
[2017-12-29] MEDS ORDERED: CLOPIDOGREL 75 MG TAB PO SCH (09:00)
[2017-12-29] MEDS ORDERED: ATORVASTATIN 40 MG TAB PO SCH (21:00)
== END 2017-12-29 09:13 | disposition home or self-care (01) ==
LOC: CATHCVL 06:33 → 6ICU 09:44 → CATHCVL 12-29 09:13
PROVIDERS: ATTEND Internal Medicine Interventional Cardiology
DX: I25.118 Atherosclerotic heart disease of native coronary artery with other forms of angina pectoris (principal); E78.5 Hyperlipidemia, unspecified; I10 Essential (primary) hypertension; Z87.891 Personal history of nicotine dependence; Z79.82 Long term (current) use of aspirin; Z79.899 Other long term (current) drug therapy
CPT/HCPCS: 80048; 85025; C9600; C1769 ×2; C1887 ×2; C1874; C1894; C1725; J2001; J2250; J3010; J0583; Q9967

== ENCOUNTER 2018-02-01 22:07 | Emergency (ER) | payer OTHER ==
[2018-02-01 22:20] VITALS: RESP 18
[2018-02-01] MEDS ORDERED: ASPIRIN 81 MG PO STA (22:47)
--- NOTE | 2018-02-01 22:49 | ED ---
Chest Pain HPI - General Chief Complaint: Chest Pain Stated Complaint: chest pain/high blood pressure Time Seen by Provider: 02/01/18 22:22 Source: patient Mode of arrival: wheelchair Limitations: no limitations - History of Present Illness Initial Comments: This patient's a 47-year-old woman who presents with substernal chest discomfort , that she is describing as a pressure feeling. It is been going on between 1 and 2 weeks though more pronounced the past 2 days. It seems to be constant. She has not noted an exertional component. She states that she does feel will shortness of breath. She has noted also that when she has taken her blood pressure over the past few days it is been running in the neighborhood of 160/ 100. Patient denies diaphoresis, nausea vomiting, lightheadedness or syncope, palpitations. MD Complaint: chest pain -: week(s) Onset: during rest Pain Location: substernal Severity: moderate Quality: tightness Consistency: constant Improves With: nothing Worsens With: nothing Anginal Symptoms: dyspnea Treatments Prior to Arrival: none - Related Data Home Medications Medication Instructions Recorded Confirmed Losartan/Hydrochlorothiazide 1 tab PO DAILY 05/07/16 02/01/18 [Losartan-Hctz 100-25 mg Tab] Apple Cider Complete(Dose Unknown) 2 tab PO DAILY 12/20/17 02/01/18 Aspirin [Adult Low Dose Aspirin EC] 81 mg PO DAILY 12/20/17 02/01/18 Isosorbide Mononitrate ER [Imdur] 60 mg PO DAILY 12/20/17 02/01/18 Kelp 1 tab PO DAILY 12/20/17 02/01/18 Potassium + Magnesium(Dose Unknown) 1 tab PO DAILY 12/20/17 02/01/18 Super [place] 3-7-9 2 tab PO DAILY 12/20/17 02/01/18 Ubidecarenone [Co Q-10] 100 mg PO DAILY 12/20/17 02/01/18 Vitamin B Complex 1 cap PO DAILY 12/20/17 02/01/18 Atorvastatin [Lipitor] 40 mg PO DAILY 02/01/18 02/01/18 Fenofibrate Nanocrystallized 48 mg PO DAILY 02/01/18 02/01/18 [Fenofibrate] Previous Rx's Medication Instructions Recorded Clopidogrel [Plavix] 75 mg PO DAILY #90 tab 12/29/17 Allergies Allergy/AdvReac Type Severity Reaction Status Date / Time latex Allergy Itching Verified 02/01/18 22:49 Review of Systems ROS Statement: Those systems with pertinent positive or pertinent negative responses have been documented in the HPI. ROS Other: All systems not noted in ROS Statement are negative. Constitutional: Reports: chills. Denies: fever Respiratory: Denies: cough, dyspnea Cardiovascular: Reports: as per HPI, chest pain. Denies: palpitations, dyspnea on exertion, orthopnea, edema, syncope Gastrointestinal: Denies: abdominal pain, nausea, vomiting Genitourinary: Denies: dysuria, hematuria Musculoskeletal: Denies: back pain Skin: Denies: rash Neurological: Denies: headache, weakness, numbness Psychiatric: Reports: anxiety EKG Findings - EKG Results: EKG: interpreted by MELISA, sinus rhythm (Rate approximately 89 bpm), normal axis , normal QRS, normal ST/T - Blocks, [place], Hypertrophy, ST Abn: Chamber hypertrophy or enlargement: only voltage criteria for left ventricular hypertrophy Past Medical History Past Medical History: Coronary Artery Disease (CAD), Hypertension Additional Past Medical History / Comment(s): MIGRAINES, UTERINE FIBROIDS/CYST HAD HYTERECTOMY History of Any Multi-Drug Resistant Organisms: None Reported Past Surgical History: Bladder Surgery, Heart Catheterization With Stent, Hysterectomy, Tonsillectomy Additional Past Surgical History / Comment(s): ADI CARPAL TUNNEL RELEASE, RT SHOULDER ARTHROSCOPY, RT KNEE ARTHROSCOPY Past Anesthesia/Blood Transfusion Reactions: Motion Sickness Past Psychological History: No Psychological Hx Reported Smoking Status: Former smoker Past Alcohol Use History: Occasional Past Drug Use History: None Reported - Past Family History Mother Family Medical History: Deep Vein Thrombosis (DVT) Additional Family Medical History / Comment(s): . Father Additional Family Medical History / Comment(s): PT'S DAD WHEN SHE WAAS A YOUNG CHILD. HE WS KILLED WHEN AT WORK ON AN OIL RIG General Exam Limitations: no limitations General appearance: alert, in no apparent distress Head exam: Present: atraumatic, normocephalic Eye exam: Present: normal appearance. Absent: scleral icterus, conjunctival injection Neck exam: Present: normal inspection Respiratory exam: Present: normal lung sounds bilaterally. Absent: respiratory distress, wheezes, rales, rhonchi, stridor Cardiovascular Exam: Present: regular rate, normal rhythm, normal heart sounds. Absent: systolic murmur, diastolic murmur, rubs, gallop GI/Abdominal exam: Present: soft. Absent: distended, tenderness, guarding, rebound, rigid, mass Extremities exam: Present: normal inspection, normal capillary refill. Absent: pedal edema, calf tenderness Back exam: Present: normal inspection. Absent: CVA tenderness (R), CVA tenderness (L) Neurological exam: Present: alert Skin exam: Present: warm, dry, intact, normal color. Absent: rash Course Vital Signs 02/01/18 02/01/18 02/02/18 22:16 23:15 00:17 Temperature 98.2 F 98.0 F Pulse Rate 88 82 83 Respiratory 18 18 18 Rate Blood Pressure 181/108 188/101 143/75 O2 Sat by Pulse 98 99 99 Oximetry 02/02/18 02/02/18 01:54 03:02 Temperature 97.4 F L Pulse Rate 78 87 Respiratory 18 18 Rate Blood Pressure 132/71 138/87 O2 Sat by Pulse 98 99 Oximetry Chest Pain [facility] Patient's 47-year-old woman presenting with some atypical chest pain going on between one week and 2. Her initial workup is negative and I did discuss admission for telemetry monitoring, repeat cardiac enzymes and cardiology consultation. At this point the patient does decline though she agrees to have second set of enzymes drawn and states that she does have appointment coming with cardiology in approximately 2 weeks. We discussed and she will call to inform them that she was here. We discussed return parameters and appropriate follow-up Disposition Clinical Impression: Chest pain, Hypertension Disposition: HOME SELF-CARE Condition: Good Instructions: Chest Pain (ED), Hypertension (ED) Is patient prescribed a controlled substance at d/c from ED?: No Referrals: Bhupendra Dunbar DO [Primary Care Provider] - 1-2 days Blake Redman MD [Family Provider] - 1-2 days
[2018-02-01] MEDS ORDERED: NITROGLYCERIN SL TABS 0.4 MG TAB SUBLINGUAL STA (23:08)
[2018-02-01 23:12] LABS: Basophils # (A) 0.1 k/uL (0-0.2); Basophils % (A) 1 %; Eosinophils # (A) 0.2 k/uL (0-0.7); Eosinophils % (A) 3 %; HGB 13.5 gm/dL (11.4-16.0); Lymphocytes # (A) 1.7 k/uL (1.0-4.8); Lymphocytes % (A) 28 %; MCH 30.5 pg (25.0-35.0); MCHC 35.5 g/dL (31.0-37.0); Mean Platelet Volume 6.5; Monocytes # (A) 0.6 k/uL (0-1.0); Monocytes % (A) 10 %; Neutrophils # (A) 3.5 k/uL (1.3-7.7); Neutrophils % (A) 56 %; Platelet Count 246 k/uL (150-450); RBC 4.41 m/uL (3.80-5.40); RDW 13.6 % (11.5-15.5); WBC 6.3 k/uL (3.8-10.6)
[2018-02-01 23:22] LABS: ALT 56 U/L (9-52); AST 31 U/L (14-36); Albumin 4.2 g/dL (3.5-5.0); Alkaline Phosphatase 41 U/L (38-126); Anion Gap 10 mmol/L; Blood Urea Nitrogen 15 mg/dL (7-17); Calcium 10.2 mg/dL (8.4-10.2); Carbon Dioxide 23 mmol/L (22-30); Chloride 106 mmol/L (98-107); Glucose 142 mg/dL (74-99); Magnesium 2.2 mg/dL (1.6-2.3); Sodium 139 mmol/L (137-145); Total Bilirubin 0.7 mg/dL (0.2-1.3); Total Protein 6.6 g/dL (6.3-8.2)
--- NOTE | 2018-02-01 23:30 | XR ---
EXAMINATION TYPE: XR chest 1V portable DATE OF EXAM: 02/01/2018 COMPARISON: 06/26/2015 HISTORY: Chest pain TECHNIQUE: Single frontal view of the chest is obtained. FINDINGS: Heart and mediastinum are normal. Lungs are clear. Diaphragm is normal. There are chest le ads. Bony thorax is intact. IMPRESSION: Normal chest. No change.
[2018-02-01 23:32] LABS: D-Dimer 0.18 mg/L FEU (<0.60); Prothrombin Time 9.9 sec (9.0-12.0)
[2018-02-01 23:33] LABS: Partial Thromboplastin Time 21.3 sec (22.0-30.0)
[2018-02-01 23:44] LABS: Creatine Kinase 29 U/L (30-135)
[2018-02-01 23:57] LABS: Creatine Kinase MB 0.3 ng/mL (0.0-2.4); Troponin I <0.012 ng/mL (0.000-0.034)
[2018-02-02 03:03] VITALS: BP 138/87; PULSE 87; TEMP 97.4
== END 2018-02-02 03:03 | disposition home or self-care (01) ==
LOC: EC 22:07
DX: I10 Essential (primary) hypertension (principal); R07.89 Other chest pain; I25.10 Atherosclerotic heart disease of native coronary artery without angina pectoris; Z87.891 Personal history of nicotine dependence; Z95.5 Presence of coronary angioplasty implant and graft; Z98.890 Other specified postprocedural states; Z79.899 Other long term (current) drug therapy; Z91.040 Latex allergy status
CPT/HCPCS: 36415; 71045; 80053; 82550; 82553; 83735; 84484; 85025; 85379; 85610; 85730; 93005; 99285

== ENCOUNTER → 2018-02-22 | Outpatient (CLI) | payer OTHER ==
--- NOTE | 2018-02-22 14:50 | BD ---
EXAMINATION TYPE: Axial Bone Density DATE OF EXAM: 02/22/2018 COMPARISON: NONE CLINICAL HISTORY: Screening for osteoporosis. Postmenopausal female. Height: 65.5 IN Weight: 204 LBS FRAX RISK QUESTIONS: Family History (Parent hip fracture): YES MOTHER RISK FACTORS HISTORY OF: Family History of Osteoporosis: YES MOTHER Active: YES Postmenopausal woman: AGE 45 MEDICATIONS: Additional Medications: ASPIRIN, ATORVASTATIN, PLAVIX, NORVASC, FENOFIBRATE, ISOSORB MONO ER, COQ10,P OTASSIUM, MAGNESIUM, B COMPLEX, SOLARAY KELP, SUPER OMEGA EXAM MEASUREMENTS: Bone mineral densitometry was performed using the [employer] System. Bone mineral density as measured about the Lumbar spine is: ----- L1-L4(G/cm2): 1.656 T Score Values are as follows: ----- L2: 3.3 ----- L3: 4.9 ----- L4: 4.2 ----- L1-L4: 4.0 Bone mineral density BASELINE Bone mineral density about the R hip (g/cm2): 1.304 Bone mineral density about the L hip (g/cm2): 1.150 T Score values are as follows: -----R Neck: 1.9 -----L Neck: 1.8 -----R Total: 2.7 -----L Total: 1.8 Bone mineral density BASELINE IMPRESSION: Normal (Values between +1 and -1 indicate normal bone mass). Consider repeating this study in 5 year s or sooner if there is some new clinical indication. NOTE: T-SCORE=SD OF THE YOUNG ADULT MEAN.
== END | disposition home or self-care (01) ==
LOC: RADBDWWP 13:08
PROVIDERS: ATTEND Family Medicine
DX: Z13.820 Encounter for screening for osteoporosis (principal); E83.52 Hypercalcemia
CPT/HCPCS: 77080

== ENCOUNTER → 2018-02-22 | Outpatient (CLI) | payer OTHER ==
[2018-02-22 13:23] LABS: ALT 68 U/L (9-52); AST 41 U/L (14-36); Albumin 4.7 g/dL (3.5-5.0); Alkaline Phosphatase 62 U/L (38-126); Anion Gap 9 mmol/L; Blood Urea Nitrogen 13 mg/dL (7-17); Calcium 10.7 mg/dL (8.4-10.2); Carbon Dioxide 25 mmol/L (22-30); Chloride 106 mmol/L (98-107); Glucose 133 mg/dL (74-99); Potassium 4.1 mmol/L (3.5-5.1); Sodium 140 mmol/L (137-145); Total Bilirubin 0.9 mg/dL (0.2-1.3); Total Protein 7.3 g/dL (6.3-8.2)
[2018-02-22 13:38] LABS: Collection Time,Urine 24 hrs; Total Volume 24 Hour,Urine 1600 mls (800-1800)
[2018-02-22 14:27] LABS: Calcium 24 Hour,Urine >569.6 mg/24 hr
--- NOTE | 2018-02-22 15:28 | US ---
EXAMINATION TYPE: US thyroid st tissue head/neck DATE OF EXAM: 02/22/2018 COMPARISON: NONE CLINICAL HISTORY: E21.0 HYPERPARATHYROIDISM. Elevated calcium GLAND SIZE: Right Lobe: 5.5 x 1.8 x 1.4cm Overall Parenchyma: homogenous Left Lobe: 5.2 x 1.6 x 1.7cm Overall Parenchyma: homogeneous Isthmus Thickness: 0.8cm NODULES RIGHT: # of nodules measured on right: 0 LEFT: # of nodules measured on left: 0 ISTHMUS: # of nodules measured in the isthmus: 0 Bilateral neck scanned, no evidence of lymphadenopathy. No parathyroid tissue seen at this time. IMPRESSION: Thyroid gland is homogeneous without discrete nodularity although mildly enlarged. Parathyroid adeno ma is identified on today's examination. Nuclear medicine parathyroid uptake scan could be performed for further evaluation.
[2018-02-22 19:23] LABS: Parathyroid Hormone Intact 101.2 pg/mL (14.0-72.0); Vitamin D 25 Hydroxy 15.1 ng/mL (30.0-100.0)
== END | disposition home or self-care (01) ==
LOC: RADUSWWP 12:50
PROVIDERS: ATTEND Internal Medicine Endocrinology, Diabetes & Metabolism
DX: D35.1 Benign neoplasm of parathyroid gland (principal); E21.0 Primary hyperparathyroidism
CPT/HCPCS: 36415; 76536; 80053; 81050; 82306; 82340; 82941; 83970; 84146

== ENCOUNTER → 2018-05-23 | Outpatient (CLI) | payer OTHER ==
--- NOTE | 2018-05-25 09:55 | MM ---
Reason for exam: screening (asymptomatic). Last mammogram was performed 1 year ago. Physical Findings: A clinical breast exam by your physician is recommended on an annual basis and results should be correlated with mammographic findings. MG 3D Screening Mammo W/Cad Bilateral CC and MLO view(s) were taken. Prior study comparison: May 19, 2017, bilateral MG 3d screening mammo w/cad. March 11, 2016, bilateral MG 3d screening mammo w/cad. The breast tissue is heterogeneously dense. This may lower the sensitivity of mammography. No suspicious abnormality. No significant changes when compared with prior studies. ASSESSMENT: Negative, BI-RAD 1 RECOMMENDATION: Routine screening mammogram of both breasts in 1 year.
== END | disposition home or self-care (01) ==
LOC: RADMAMWWP 02-22 13:07
PROVIDERS: ATTEND Family Medicine
DX: Z12.31 Encounter for screening mammogram for malignant neoplasm of breast (principal); E83.52 Hypercalcemia
CPT/HCPCS: 77063; 77067

== ENCOUNTER → 2019-06-13 | Outpatient (CLI) | payer OTHER ==
--- NOTE | 2019-06-13 09:42 | MM ---
Reason for exam: screening (asymptomatic). Last mammogram was performed 1 year and 1 month ago. Physical Findings: A clinical breast exam by your physician is recommended on an annual basis and results should be correlated with mammographic findings. MG 3D Screening Mammo W/Cad Bilateral CC and MLO view(s) were taken. Prior study comparison: May 23, 2018, bilateral MG 3d screening mammo w/cad. May 19, 2017, bilateral MG 3d screening mammo w/cad. The breast tissue is heterogeneously dense. This may lower the sensitivity of mammography. Benign appearing bilateral calcifications. There is chronic nodularity in the left breast. No significant changes when compared with prior studies. ASSESSMENT: Benign, BI-RAD 2 RECOMMENDATION: Routine screening mammogram of both breasts in 1 year.
== END | disposition home or self-care (01) ==
LOC: RADMAMWWP 07:15
PROVIDERS: ATTEND Family Medicine
DX: Z12.31 Encounter for screening mammogram for malignant neoplasm of breast (principal)
CPT/HCPCS: 77063; 77067

== ENCOUNTER → 2019-08-09 | Outpatient (CLI) | payer OTHER ==
[2019-08-09 17:49] LABS: Basophils # (A) 0.1 k/uL (0-0.2); Basophils % (A) 2 %; Eosinophils # (A) 0.3 k/uL (0-0.7); Eosinophils % (A) 4 %; HCT 41.9 % (34.0-46.0); HGB 14.1 gm/dL (11.4-16.0); Lymphocytes # (A) 2.5 k/uL (1.0-4.8); Lymphocytes % (A) 37 %; MCH 28.9 pg (25.0-35.0); MCHC 33.5 g/dL (31.0-37.0); MCV 86.2 fL (80.0-100.0); Monocytes # (A) 0.5 k/uL (0-1.0); Monocytes % (A) 7 %; Neutrophils # (A) 3.2 k/uL (1.3-7.7); Neutrophils % (A) 47 %; Platelet Count 295 k/uL (150-450); RBC 4.86 m/uL (3.80-5.40); RDW 12.5 % (11.5-15.5); WBC 6.7 k/uL (3.8-10.6)
[2019-08-09 17:58] LABS: Potassium 4.1 mmol/L (3.5-5.1)
== END | disposition home or self-care (01) ==
LOC: LABPAT 17:24
PROVIDERS: ATTEND Orthopaedic Surgery
DX: Z01.818 Encounter for other preprocedural examination (principal); Z01.812 Encounter for preprocedural laboratory examination; M23.92 Unspecified internal derangement of left knee
CPT/HCPCS: 36415; 80051; 85025; 93005

== ENCOUNTER 2019-09-07 11:01 | Day surgery (SDC) | payer OTHER ==
[2019-09-05 12:25] VITALS: BMI 33.0
--- NOTE | 2019-09-06 14:17 | HP ---
HISTORY AND PHYSICAL REASON FOR ADMISSION: Surgery is 09/07/2019. HISTORY OF PRESENT ILLNESS: Marilu Dao is a 49-year-old patient seen with left knee pain. We discussed options. She elected to proceed with arthroscopy. Consent was obtained regarding the procedure. PAST MEDICAL HISTORY: Hypertension, brv-plljxnn-pwemkiuqm diabetes. PAST SURGICAL HISTORY: Carpal tunnel release, cholecystectomy, hysterectomy, left knee arthroscopy, right shoulder arthroscopy. DAILY MEDICATIONS: Aspirin, atorvastatin, carvedilol, fenofibrate, metformin, Norvasc. ALLERGIES: None. SOCIAL HISTORY: She denies tobacco use. PHYSICAL EXAMINATION: Evaluation of the left knee: Range of motion is zero to 125. Mild effusion. Tenderness along the lateral joint line. Positive lateral Sultana's. Patellar crepitus. Ligament is stable. Hip rotation without pain. Distal neurovascular exam intact. RADIOGRAPHS: Radiographs of the left knee: Moderate medial, lateral, and patellofemoral compartment osteoarthritis. MRI left knee: Medial meniscal tear. IMPRESSION: 1. Internal derangement of the left knee with medial meniscal tear. 2. Left knee osteoarthritis. 3. Hypertension. 4. Bco-towmepi-urcrbuiil diabetes. PLAN: Left knee arthroscopy with partial meniscectomy, partial synovectomy, and debridement. Surgery is 09/07/2019. MMODL / IJN: [id number] /
[~2019-09-07 11:01] MED LIST changes: -ALPRAZolam 0.25 MG TAB PO PRN; -ALPRAZolam 0.5 MG TAB PO PRN; -ASPIRIN 325 MG TAB PO STA; -ATORVASTATIN 80 MG TAB PO STA; +DEXAMETHASONE SOD PHOSPHATE 10 MG/ML 1 ML VIAL IV ONE; +HYDROmorphone 0.5 MG/0.5 ML SYRINGE IVP PRN; +LACTATED RINGERS 1,000 ML IV SCH; +LIDOCAINE 1% 20 ML VIAL (10MG/ML) FOR IV START INTRADERMA PRN; -NITROGLYCERIN SL TABS 0.4 MG TAB SUBLINGUAL PRN; +ONDANSETRON 4 MG/2 ML VIAL IVP ONE; +SCOPOLAMINE 1.5MG/72HR PATCH TRANSDERM ONE; -SODIUM CHLORIDE 0.9% 1,000 ML in EMPTY BAG 1 BAG IV ONE
[2019-09-07 11:20] VITALS: RESP 16
[2019-09-07 11:31] LABS: Glucose,Whole Blood 154 mg/dL (75-99)
[2019-09-07] MEDS ORDERED: BUPIVACAINE (PF) 0.25% 30 ML VIAL SQ ONE (12:54)
[2019-09-07] MEDS ORDERED: fentaNYL (PF) 50 MCG/ML 2 ML AMP ONE (12:54)
[2019-09-07] MEDS ORDERED: LIDOCAINE 1% INJ 10MG/ML (20 ML MDV) ONE (12:54)
[2019-09-07] MEDS ORDERED: PROPOFOL 10 MG/ML 20 ML VIAL IV ONE (12:54)
[2019-09-07] MEDS ORDERED: MIDAZOLAM 2 MG/2 ML VIAL ONE (12:54)
[2019-09-07] MEDS ORDERED: LACTATED RINGERS 1,000 ML IV ONE (13:33)
[2019-09-07 13:48] VITALS: TEMP 97.3
--- NOTE | 2019-09-07 13:51 | P.OP ---
Date of Procedure: 09/07/19 Preoperative Diagnosis: Internal derangement left knee Postoperative Diagnosis: 1. Tear medial meniscus left knee 2. 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 Grade 4 chondromalacia patellofemoral joint left knee 4. Reactive synovitis medial, lateral and suprapatellar compartments left knee Procedure(s) Performed: 1. Arthroscopic partial medial meniscectomy left knee 2. Arthroscopic chondroplasty medial tibial plateau left knee 3. Arthroscopic microfracture medial tibial plateau left knee 4. Arthroscopic partial synovectomy medial, lateral and suprapatellar compartments left knee Anesthesia: HENNYA, local Surgeon: Vernon Jo Estimated Blood Loss (ml): 7 Pathology: none sent Condition: stable Disposition: PACU Indications for Procedure: 49-year-old patient seen with progressive left knee. After having treatment options discussed, she elected to proceed with arthroscopy. Operative Findings: See description of procedure Description of Procedure: Patient was taken to the operative suite. Patient underwent a general anesthetic by the department of anesthesia. Patient was given preoperative antibiotics. The left lower extremity was placed in a well-padded arthroscopic leg carson. The left leg was prepped and draped in the normal sterile orthopedic fashion. A lateral parapatellar and suprapatellar incision was made. Trochars were inserted. Arthroscopy was initiated. Suprapatellar pouch revealed diffuse thick reactive synovitis. The patellofemoral joint appeared to articulate congruently. There was grade 4 chondromalacia of the patella and the femoral sulcus. There were areas of bony exposure on both size. There were no osteochondral tears present.. The scope was guided into the medial gutter. No loose bodies or plica were identified. The scope was then guided into the medial compartment. A medial parapatellar incision was made. Trocar inserted followed by probe. There was a radial tear involving the posterior horn medial meniscus. There was an area of grade 4 chondromalacia medial aspect medial tibial plateau with some exposed bone. There was thick reactive synovitis anteriorly. I performed a partial medial meniscectomy getting down to stable me niscal tissue. I performed a chondroplasty of the tibial plateau. I performed a microfracture of that exposed area bone medial tibial plateau penetrating the bone with microfracture awl with resultant bleeding at the microfracture site. I now performed a partial synovectomy decompressing the reactive synovitis as well as debriding out some piecemeal fragments of meniscus I encountered. The residual meniscus was stable. The residual osteochondral surface was stable. There was good decompression of synovitis. Scope and probe were then guided into the intercondylar notch. Cruciates were identified, probed and found to be stable. The scope and probe were then guided into lateral compartment. With some mild fraying of the mid body area lateral meniscus. There was reactive synovitis anteriorly. Chondromalacia changes lateral compartment with no osteochondral tears present. I debrided that fraying of the lateral meniscus with a motorized shaver. I performed a partial synovectomy decompressing reactive synovitis. The shaver was removed. Good decompression of synovitis was noted. The scope was in guided back into the suprapatellar compartment. I introduced a motorized shaver into the suprapatellar compartment. I debrided some piecemeal fragments of meniscus I encountered. I performed a partial synovectomy decompressing the reactive synovitis. There was good decompression of synovitis. The shaver was removed. Instruments were now removed from the joint. The joint was infiltrated with .25% Marcaine. Steri-Strips were applied to the portal sites. Sterile dressings were applied. The patient was placed into a MATTHEW hose. No tourniquet was utilized. The patient was awakened, transferred to a bed and taken to recovery stable satisfactory condition.
[2019-09-07 14:37] LABS: Glucose,Whole Blood 165 mg/dL (75-99)
[2019-09-07 15:05] VITALS: PULSE 89
[2019-09-07 15:26] VITALS: BP 118/73
== END 2019-09-07 15:55 | disposition home or self-care (01) ==
LOC: OR 11:01
PROVIDERS: ATTEND Orthopaedic Surgery
DX: M23.322 Other meniscus derangements, posterior horn of medial meniscus, left knee (principal); M94.262 Chondromalacia, left knee; M65.862 Other synovitis and tenosynovitis, left lower leg; M22.42 Chondromalacia patellae, left knee; M17.12 Unilateral primary osteoarthritis, left knee; I10 Essential (primary) hypertension; E11.9 Type 2 diabetes mellitus without complications; I25.10 Atherosclerotic heart disease of native coronary artery without angina pectoris; E78.5 Hyperlipidemia, unspecified; G43.909 Migraine, unspecified, not intractable, without status migrainosus; Z98.890 Other specified postprocedural states; Z90.49 Acquired absence of other specified parts of digestive tract; Z90.710 Acquired absence of both cervix and uterus; Z79.82 Long term (current) use of aspirin; Z79.899 Other long term (current) drug therapy; Z79.84 Long term (current) use of oral hypoglycemic drugs; Z87.891 Personal history of nicotine dependence; Z95.5 Presence of coronary angioplasty implant and graft
CPT/HCPCS: 29881; 29879; J2250; J1100; J0690; J2405; J2001; J3010; J2704; J1170

== ENCOUNTER → 2019-11-29 | Outpatient (CLI) | payer OTHER ==
[2019-11-29 15:50] LABS: African American GFR (CKD) 116.3 (60.0-200.0); Albumin 4.5 g/dL (3.80-4.90); Albumin/Globulin Ratio 2.05 (1.60-3.17); Calcium 9.4 mg/dL (8.7-10.3); Globulin 2.2 g/dL (1.6-3.3); Non-African American GFR(CKD) 100.3 (60.0-200.0); Total Protein 6.7 g/dL (6.2-8.2)
== END | disposition home or self-care (01) ==
LOC: LABWHC1 09:44
PROVIDERS: ATTEND Internal Medicine Endocrinology, Diabetes & Metabolism
DX: Z86.39 Personal history of other endocrine, nutritional and metabolic disease (principal); E55.9 Vitamin D deficiency, unspecified
CPT/HCPCS: 36415; 80053; 82306; 83970

== ENCOUNTER → 2019-12-08 | Outpatient (CLI) | payer OTHER ==
[2019-12-08 15:46] LABS: Urine Creatinine 105.2 mg/dL
[2019-12-08 16:16] LABS: African American GFR (CKD) 98.9 (60.0-200.0); Albumin 4.8 g/dL (3.80-4.90); Albumin/Globulin Ratio 2.09 (1.60-3.17); Anion Gap 9.5 mmol/L (4.00-12.00); BUN/Creat Ratio 17.5 Ratio (12.00-20.00); Calcium 9.6 mg/dL (8.7-10.3); Carbon Dioxide 24.5 mmol/L (21.6-31.8); Chol/HDL Ratio 4.78; Globulin 2.3 g/dL (1.6-3.3); LDL Cholesterol,Calculated 88.4 mg/dL (0.0-131.0); Non-African American GFR(CKD) 85.4 (60.0-200.0); Potassium 4.2 mmol/L (3.5-5.5); Total Bilirubin 1.2 mg/dL (0.2-1.2); Total Protein 7.1 g/dL (6.2-8.2); VLDL Calculation 62.6 mg/dL (5.00-40.00)
[2019-12-08 16:44] LABS: Hemoglobin A1C 7.6 % (4.0-6.0)
== END | disposition home or self-care (01) ==
LOC: LABWHC1 09:05
PROVIDERS: ATTEND Internal Medicine Endocrinology, Diabetes & Metabolism
DX: E11.65 Type 2 diabetes mellitus with hyperglycemia (principal)
CPT/HCPCS: 36415; 80053; 80061; 82043; 82570; 83036; 84443

== ENCOUNTER → 2020-03-20 | Outpatient (CLI) | payer OTHER | END | disposition home or self-care (01) | LOC: LABPAT 08:36 | PROVIDERS: ATTEND Orthopaedic Surgery | DX: Z01.812 Encounter for preprocedural laboratory examination (principal) | CPT/HCPCS: 87070 ==

== ENCOUNTER 2020-04-01 05:55 | Day surgery (SDC) | payer OTHER ==
[2020-03-26 09:14] VITALS: BMI 33.2
--- NOTE | 2020-03-31 12:10 | HP ---
HISTORY AND PHYSICAL REASON FOR ADMISSION: Surgery scheduled for 04/01/2020 Marilu Dao is a 49-year-old patient seen with symptomatic left knee osteoarthritis. Treatment options were discussed. She elected to proceed with left total knee arthroplasty. Consent was obtained. Medical clearance was provided Dr. Dunbar. Cardiac clearance by Dr. Redman. PAST MEDICAL HISTORY: Hypertension, xlm-qmqrduz-npsfewvbh diabetes, hyperlipidemia. PAST SURGICAL HISTORY: Right shoulder arthroscopy, left knee arthroscopy, cholecystectomy, hysterectomy, carpal tunnel release. DAILY MEDICATIONS: Aspirin, atorvastatin, isosorbide, metformin, Norvasc. ALLERGIES: None. SOCIAL HISTORY: She denies current tobacco use. PHYSICAL EXAMINATION: Evaluation of the left knee: Range of motion is -2 to 110. Tenderness medial joint line. Crepitus medial patellofemoral compartments range of motion. Pain with patellofemoral compression. Ligaments stable. Hip rotation without pain. Distal neurovascular exam intact. RADIOGRAPHS: Radiographs of the left knee revealed severe osteoarthritic changes. IMPRESSION: 1. Left knee osteoarthritis. 2. Hypertension. 3. Hyperlipidemia. 4. Qnd-yrqddhe-jluycdopj diabetes. PLAN: Left total knee arthroplasty. MMODL / IJN: [id number] /
[~2020-04-01 05:55] MED LIST changes: +ACETAMINOPHEN TAB 500 MG TAB PO ONE; -HYDROmorphone 0.5 MG/0.5 ML SYRINGE IVP PRN; -LIDOCAINE 1% 20 ML VIAL (10MG/ML) FOR IV START INTRADERMA PRN; +MELOXICAM 7.5 MG TAB PO ONE; +MIDAZOLAM 2 MG/2 ML VIAL IV PRN; -SCOPOLAMINE 1.5MG/72HR PATCH TRANSDERM ONE; +TRANEXAMIC ACID 1,000 MG in SODIUM CHLORIDE 0.9% 100 ML IVPB ONE
[2020-04-01] MEDS ORDERED: ROPIVACAINE 246.25 MG, EPINEPHrine 0.5 MG, KETOROLAC 30 MG, cloNIDine HCL/PF 80 MCG, WA... MISCELLANE ONE ×5 (06:00)
[2020-04-01] MEDS ORDERED: ACETAMINOPHEN TAB 500 MG TAB ONE (06:39)
[2020-04-01] MEDS ORDERED: ONDANSETRON 4 MG/2 ML VIAL ONE (06:39)
[2020-04-01] MEDS ORDERED: MIDAZOLAM 2 MG/2 ML VIAL IV ONE (07:00)
[2020-04-01] MEDS ORDERED: SCOPOLAMINE 1.5MG/72HR PATCH TRANSDERM ONE (07:00)
[2020-04-01 07:07] LABS: Glucose,Whole Blood 138 mg/dL (75-99)
--- NOTE | 2020-04-01 07:25 | P.ANPRN ---
Procedure Note - Anesthesia - Nerve Block Performed Left Adductor Canal Infusion Time Out Performed: Yes ([id number]) Date of Procedure: 04/01/20 Procedure Start Time: 07:00 Procedure Stop Time: 07:15 Location of Patient: PreOp Indication: Acute Post-Operative Pain, Analgesia, Dx/Pain Location, Requested by Surgeon Specifically requested for management of pain by DrNilda: Vernon Jo Sedation Type: Sedate with meaningful contact maintained Preparation: Sterile Prep, Sterile Dressing Position: Supine Catheter: Indwelling Needle Types: Pajunk Needle Gauge: 20 Ultrasound used to visualize needle placement: Yes Ultrasound used to observe medication spread: Yes Injectate: 0.5% Ropivacaine (see comment for volume) (30 mL) Blood Aspirated: No Pain Paresthesia on Injection Noted: No Resistance on Injection: Normal Image Stored and Saved: Yes Events: Uneventful and Well Tolerated
[2020-04-01] MEDS ORDERED: LIDOCAINE 1% INJ 10MG/ML (20 ML MDV) ONE (07:26)
[2020-04-01] MEDS ORDERED: HYDROmorphone (PF) 1 MG/ML ONE (07:26)
[2020-04-01] MEDS ORDERED: PROPOFOL 10 MG/ML 20 ML VIAL IV ONE (07:26)
[2020-04-01] MEDS ORDERED: SODIUM CHLORIDE 0.9% 100 ML BAG ONE (07:26)
[2020-04-01] MEDS ORDERED: TRANEXAMIC ACID 1,000 MG/10 ML VIAL ONE (07:26)
[2020-04-01] MEDS ORDERED: fentaNYL (PF) 50 MCG/ML 2 ML AMP ONE (07:26)
[2020-04-01] MEDS ORDERED: MIDAZOLAM 2 MG/2 ML VIAL ONE (07:26)
[2020-04-01] MEDS ORDERED: SUCCINYLCHOLINE CHLORIDE 100 MG/5 ML SYR IV ONE (07:26)
[2020-04-01] MEDS ORDERED: ceFAZolin 1,000 MG in SODIUM CHLORIDE 0.9% 1,000 ML IRRIGATION ONE (07:30)
--- NOTE | 2020-04-01 09:11 | P.OP ---
Date of Procedure: 04/01/20 (Left knee osteoarthritis) Preoperative Diagnosis: Left knee osteoarthritis Postoperative Diagnosis: Left knee osteoarthritis Procedure(s) Performed: Left total knee arthroplasty Implants: 1. Depuy attune size 4 narrow left cemented cruciate retaining femur 2. Depuy attune size 3 fixed bearing cemented tibial baseplate 3. Depuy attune size 4 fixed bearing cruciate retaining 5 mm polyethylene tibial insert 4. Depuy attune 35 mm all polyethylene cemented patella Anesthesia: GETA, regional (Adductor canal catheter), local Surgeon: Vernon Jo Winder Helper #1: Ethan Carnes Estimated Blood Loss (ml): 45 Pathology: other (Bone) Condition: stable Disposition: PACU Indications for Procedure: 49-year-old patient seen with left knee osteoarthritis. After having treatment options discussed, she elected to proceed with total knee arthroplasty. Operative Findings: See description of procedure Description of Procedure: Patient was taken to the operative suite after having an adductor canal catheter placed by the department of anesthesia. Patient underwent a general anesthetic by the department of anesthesia. Patient was given preoperative IV intake antibiotics and TXA. A well-padded tourniquet was placed about the left lower extremity. The lower extremity was then prepped and draped in the normal sterile orthopedic fashion. The extremity was elevated, a tourniquet was insufflated to 300. A standard anterior incision was made sharply through skin. Dissection was taken down through the subcutaneous soft tissues down to the extensor mechanism. A medial arthrotomy was performed, patella was everted and knee was flexed. There was advanced osteoarthritis noted. I introduced my distal intramedullary femoral drill. I then introduced the distal femoral cutting jig. Benito GREGORY secured the cutting jig with 2 pins. I held retractors in position while Benito GREGORY performed the distal femoral resection through the guide area we now removed her distal femoral cutting guide. We now placed our 4-in-1 femoral cutting block and positioned and it was secured with 2 pins by Benito GREGORY while I held the block in position. The distal femoral finishing was now completed. A proximal tibial cutting guide was positioned. I held the guide in the appropriate position with both hands well Benito GREGORY inserted stabilizing pins into the guide. Proximal tibial cut was made. We now placed a trial femoral component into position, along with an appropriate size tibial tray and insert. We now took the knee through range of motion and had full extension good flexion and good overall soft tissue balance noted. The patella was everted and stabilized with 2 towel clips held by Benito GREGORY while I performed a flush with patellar quad tendon utilizing a fresh sawblade. We templated the patella, appropriate drill holes were made. An appropriate trial patella was positioned, knee was taken through full range of motion with the patella tracking very nicely. The trial patella was removed. Drill holes were made through the femoral component. All trial components were removed after marking off the appropriate rotation of the tibia. Retractors were now positioned along the proximal tibia. An appropriate keel punch was made with the appropriate size tibial guide by myself on Benito GREGORY assisted by holding retractors. At this point appropriate size implants were chosen and opened. The joint was irrigated copiously with pulse lavage mechanical irrigation. The posterior capsule was infiltrated with local analgesic. The wound was irrigated with pulse lavage mechanical irrigation. We mixed antibiotic methylmethacrylate. We placed the knee into flexion. We placed multiple retractors assisted by Benito GREGORY to expose the proximal tibia. Once the methyl methacrylate was ready, the tibial component was cemented into place removing any excess methylmethacrylate form by both myself and Benito GREGORY. The femoral component was cemented into place removing the removing any excess methylmethacrylate performed by both myself and Benito GREGORY. We then inserted the appropriate size polyethylene tibial insert. We made sure that it was locked into position. We took the knee into full extension, and then back in a flexion making sure we had removed any excess methylmethacrylate. The patellar component was then cemented down and secured with clamp. Excess methylmethacrylate removed. We kept the knee in full extension, patellar clamp in position until methylmethacrylate had hardened. Once it had hardened the patellar clamp was removed. The knee was taken through full range of motion. The patella tracked nicely. There was good soft tissue balancing. The tourniquet was now released. Additional hemostasis was achieved via electrocautery. A second gram of TXA was given. The wound again was irrigated with pulse lavage mechanical irrigation. The superficial soft tissues were infiltrated local analgesic. The extensor mechanism was repaired with Vicryl. We checked the repair with range of motion and it was stable. The subcutaneous soft tissues were repaired with Vicryl in layers. The skin was approximated with pernio/Dermabond. Sterile dressings were applied followed by loose web roll and Mark bandage. The patient was transferred to a bed, and taken to recovery in stable and satisfactory condition. Benito GREGORY assisted with this complex procedure.
[2020-04-01] MEDS ORDERED: LACTATED RINGERS 1,000 ML IV ONE (09:12)
[2020-04-01] MEDS ORDERED: HYDROcodone/APAP 5-325MG 1 EACH TAB PO PRN ×2 (09:12)
[2020-04-01] MEDS ORDERED: ROPIVACAINE 0.2%-NS ON-Q PUMP 1,090 MG, EMPTY PAIN BALL 1 EACH MISCELLANE PRN (09:12)
[2020-04-01] MEDS ORDERED: NALOXONE 0.4 MG/ML 1 ML VIAL IV PRN (09:12)
[2020-04-01] MEDS ORDERED: HYDROmorphone 1 MG/ML 1 ML SYRINGE IVP PRN (09:12)
[2020-04-01] MEDS ORDERED: HYDROmorphone 0.5 MG/0.5 ML SYRINGE IVP PRN ×2 (09:12)
[2020-04-01] MEDS ORDERED: ONDANSETRON 4 MG/2 ML VIAL IVP PRN (09:12)
[2020-04-01 09:49] VITALS: TEMP 97.4
[2020-04-01 09:55] LABS: Glucose,Whole Blood 202 mg/dL (75-99)
[2020-04-01] MEDS: HYDROmorphone 0.5 MG/0.5 ML SYRINGE IVP PRN ×3 (09:59→10:22)
--- NOTE | 2020-04-01 09:59 | XR ---
EXAMINATION TYPE: XR knee limited LT DATE OF EXAM: 04/01/2020 CLINICAL HISTORY: Left knee pain and arthritis status post total knee replacement. TECHNIQUE: Portable AP and crosstable lateral views of the left knee are obtained immediately postop eratively. COMPARISON: Left knee radiograph 02/20/2020 FINDINGS: Metallic hardware from total left knee arthroplasty is seen and appears satisfactory in al ignment and position. There is evidence of recent surgery with diffuse subcutaneous gas and soft tis german irregularity. No unexpected radiopaque foreign body. IMPRESSION: METALLIC HARDWARE FROM TOTAL LEFT KNEE ARTHROPLASTY IS SATISFACTORY IN ALIGNMENT.
[2020-04-01 10:00] VITALS: RESP 16
[2020-04-01] MEDS ORDERED: HYDROcodone/APAP 7.5-325MG 1 EACH TAB ONE (13:02)
[2020-04-01] MEDS ORDERED: HYDROcodone/APAP 7.5-325MG 1 EACH TAB PO ONE (13:06)
[2020-04-01 13:42] VITALS: BP 119/78; PULSE 80
== END 2020-04-01 15:06 | disposition home health service (06) ==
LOC: OR 05:55
PROVIDERS: ATTEND Orthopaedic Surgery
DX: M17.12 Unilateral primary osteoarthritis, left knee (principal); E89.2 Postprocedural hypoparathyroidism; I10 Essential (primary) hypertension; I25.10 Atherosclerotic heart disease of native coronary artery without angina pectoris; E11.65 Type 2 diabetes mellitus with hyperglycemia; E21.0 Primary hyperparathyroidism; E78.2 Mixed hyperlipidemia; E88.9 Metabolic disorder, unspecified; B00.9 Herpesviral infection, unspecified; E66.9 Obesity, unspecified; Z68.31 Body mass index [BMI] 31.0-31.9, adult; Z79.899 Other long term (current) drug therapy; Z79.84 Long term (current) use of oral hypoglycemic drugs; Z79.82 Long term (current) use of aspirin; Z91.040 Latex allergy status; Z98.890 Other specified postprocedural states; Z90.89 Acquired absence of other organs; Z86.69 Personal history of other diseases of the nervous system and sense organs; Z90.710 Acquired absence of both cervix and uterus; Z95.5 Presence of coronary angioplasty implant and graft; Z90.49 Acquired absence of other specified parts of digestive tract; Z88.5 Allergy status to narcotic agent; Z87.891 Personal history of nicotine dependence; Z87.898 Personal history of other specified conditions
CPT/HCPCS: 27447; 97110; 97161; 64448; 76942; 88300; 73560; C1776; C1713; J2250; J0171; J1100; J0690 ×2; J2405; J2001; J3010; J1885; J1170 ×2; J2795 ×2; J0330; J2704; J0735

== ENCOUNTER → 2020-07-02 | Outpatient (CLI) | payer OTHER ==
[2020-07-02 15:49] LABS: African American GFR (CKD) 98.9 (60.0-200.0); Albumin/Globulin Ratio 2.27 (1.60-3.17); Anion Gap 10.7 mmol/L (4.00-12.00); BUN/Creat Ratio 21.25 Ratio (12.00-20.00); Calcium 10.5 mg/dL (8.7-10.3); Carbon Dioxide 28.3 mmol/L (21.6-31.8); Globulin 2.2 g/dL (1.6-3.3); Non-African American GFR(CKD) 85.4 (60.0-200.0); Potassium 4.2 mmol/L (3.5-5.5); Total Protein 7.2 g/dL (6.2-8.2)
[2020-07-02 15:50] LABS: Chol/HDL Ratio 3.8
[2020-07-02 16:40] LABS: Hemoglobin A1C 6.5 % (4.0-6.0)
[2020-07-02 18:21] LABS: Urine Creatinine 90.2 mg/dL
== END | disposition home or self-care (01) ==
LOC: LABWHC1 09:51
PROVIDERS: ATTEND Internal Medicine Endocrinology, Diabetes & Metabolism
DX: E11.65 Type 2 diabetes mellitus with hyperglycemia (principal); Z86.39 Personal history of other endocrine, nutritional and metabolic disease
CPT/HCPCS: 36415; 80053; 80061; 82043; 82570; 83036; 83970; 84443